=== PATIENT | male | born 1945 | race Caucasian/White ===

== ENCOUNTER 2020-02-22 11:20 | Day surgery (SDC) | payer MEDICARE ==
[~2020-02-22] VITALS: Ht 175.3 cm; Wt 82.6 kg
[2020-02-22 11:59] VITALS: BP 131/66
[2020-02-22] MEDS ORDERED: SODIUM CHLORIDE 0.9% 1,000 ML IV SCH (12:00)
[2020-02-22] MEDS ORDERED: CEFAZOLIN 1,000 MG in SODIUM CHLORIDE 0.9% 50 ML IV ONE (12:00)
[2020-02-22] MEDS ORDERED: PLEASE ENTER HEIGHT AND WEIGHT MC SCH (12:30)
[2020-02-22] MEDS ORDERED: ATOR20TA37 PO (12:39)
[2020-02-22] MEDS ORDERED: AMLO-150 PO (12:39)
[2020-02-22] MEDS ORDERED: VITAMIN D PO (12:39)
[2020-02-22] MEDS ORDERED: ONDA8TAB9 PO (12:39)
[2020-02-22] MEDS ORDERED: PROC10TA78 PO (12:39)
[2020-02-22] MEDS ORDERED: SALM1CAP2 PO (12:39)
[2020-02-22] MEDS ORDERED: MVI PO (12:39)
[2020-02-22] MEDS ORDERED: CEFAZOLIN PMX 1GM/50ML 50 ML ONE (12:56)
[2020-02-22] MEDS ORDERED: NALOXONE 1 MG/ML, 2ML ONE (12:57)
[2020-02-22] MEDS ORDERED: MIDAZOLAM 1 MG/ML, 5ML ONE (12:57)
[2020-02-22] MEDS ORDERED: FLUMAZENIL 0.1 MG/1 ML, 5ML ONE (12:57)
[2020-02-22] MEDS ORDERED: FENTANYL PF 100 MCG/2ML ONE ×2 (12:57)
[2020-02-22] MEDS ORDERED: LIDOCAINE 1%, 10ML ONE (13:25)
[2020-02-22] MEDS ORDERED: LIDOCAINE 1%, 20ML ONE (13:25)
== END 2020-02-22 15:15 | disposition home or self-care (01) ==
LOC: RAD 11:20
PROVIDERS: ATTEND Internal Medicine
DX: C61 Malignant neoplasm of prostate (principal); C67.9 Malignant neoplasm of bladder, unspecified; I10 Essential (primary) hypertension; E78.5 Hyperlipidemia, unspecified; G47.33 Obstructive sleep apnea (adult) (pediatric); Z79.899 Other long term (current) drug therapy; Z87.442 Personal history of urinary calculi; Z98.890 Other specified postprocedural states; Z80.3 Family history of malignant neoplasm of breast; Z80.0 Family history of malignant neoplasm of digestive organs
CPT/HCPCS: 36561; 76937; 77001; 99156; 99157; C1788; C1894; J1642; J2250; J3010; J7030; J2310